=== PATIENT | male | born 1970 | race Hispanic/Latino ===

== ENCOUNTER → 2025-02-13 | Outpatient (CLI) | payer OTHER ==
--- NOTE | 2025-02-14 10:41 | HMCIMG ---
EXAM: CT Cardiac calcium scoring. CLINICAL HISTORY: Screening. TECHNIQUE: Thin collimated axial CT cardiac images were obtained. A CT scan is done according to ALARA (As Low As Reasonably Achievable). CONTRAST: None. COMPARISON: None provided. FINDINGS: Calcium Score: VESSEL Number of lesions Volume mm3 Equi. Mass/mg Calcium score LM 1 19.6 - 26.5 LAD 3 7.1 - 9.0 LCX 0 0.0 - 0.0 RCA 1 9.3 - 11.6 Total 5 36.0 - 47.1 IMPRESSION: The total calcium score is 47.1. 72th percentile. /[place]
== END | disposition home or self-care (01) ==
LOC: RAH 11:28
PROVIDERS: ATTEND Family Medicine
DX: Z13.6 Encounter for screening for cardiovascular disorders (principal)
CPT/HCPCS: 75571